=== PATIENT | female | born 1990 | race Caucasian/White ===

== ENCOUNTER 2018-09-27 16:30 | Inpatient (IN) | payer BC, SELFPAY ==
[2018-09-27 16:11] VITALS: BMI 53.4
[2018-09-27 17:14] LABS: Absolute Lymphocyte Count 2.35 X10^3/ul (0.83-4.51); Absolute Neutrophil Count 9.1 X10^3/uL (2.0-7.7); Basophil# 0.01 X10^3/uL; Basophil% 0.1 % (0-1); Eosinophil# 0.09 X10^3/uL; Eosinophils% 0.7 % (0-5); Hemoglobin 12.1 g/dl (12.0-15.0); Lymphocyte # 2.35 X10^3/ul (4.0); Lymphocyte % 18.4 % (19-41); Mean Corp Hgb Conc 33.6 g/gl (32-36); Mean Corpuscular Hgb 30.2 pg (27.0-32.0); Mean Corpuscular Volume 89.8 fL (81-99); Mean Platelet Vol. 11.1 fl (6.2-12.0); Monocyte# 1.15 X10^3/uL; Neutrophil # 9.11 X10^3/uL (2.7-7.7); Neutrophil % 71.6 % (47-70); Partial Thromboplast Time 29.6 Seconds (24.1-36.2); Platelet Count 215 K/mm3 (150-450); RBC Distribution Width SD 42.1 fl (35.1-43.9); Red Blood Count 4.01 M/mm3 (4.2-5.4); White Blood Count 12.7 K/mm3 (4.4-11.0)
[2018-09-27 17:15] LABS: POSITIVE COUNT NO; POSITIVE DIFFERENTIAL NO; POSITIVE MORPHOLOGY NO; Scan Indicated on CBC? Y/N NO
[2018-09-27 17:19] LABS: Prothrombin Time (Protime)PT. 12.8 SECONDS (11.7-14.9)
[2018-09-27 17:27] LABS: Protein, Urine (Random) 11.2 mg/dL (<11.9); Protein:Creat Ratio 106 mg/g CRE (0-200)
--- NOTE | 2018-09-27 17:49 | PCM.HP.OB ---
History Date of Admission: 09/27/18 Final AGUSTIN: 10/09/18 Gestational age: 38 Weeks and 2 Days History of this : This is a 28 year-old, G [], P [], at 38 weeks gestational age. Surgical History: Surgical History (Last Updated 09/27/18 @ 17:50 by Jaswinder Nunez) History of oral surgery Z98.890 Allergies No Known Allergies Allergy (Verified 09/27/18 16:52) Home Medications: Home Medications Vits [Prenatabs FA] 1 tablet PO DAILY 09/27/18 Smoking Status: Former smoker Alcohol: None Heart Tracin with mod variability, accels TOCO Analysis: quiet History Past Pregnancies: Past Pregnancies Delivery Date Name GA/Weeks Outcome Route Weight Infant Gender Labor Length Anesthesia Delivery Location Provider FOB Labs: see [facility] H&P Physical Exam General: Alert, Oriented x3 Abdomen: Soft, Non Tender, Non-Distended, Gravid Extremities:: No tenderness/swelling Neurological: Cranial nerves II-XII grossly intact Cervix Dilation (cm): 1 Station: -3 Effacement (%): 50 Assessment/Plan This is a 28 year-old female at 38&2 weeks gestational age. Admit to L&D Induction of labor - start cytotec and plan for intracervical deleon placement. Severe preeclampsia - atient with likely underlying chtn. Labs pending. Starting Magnesium sulfate and s/p IV labetalol for severe range BP's. GBS positive - pcn per protocol Pain - epidural as desired. EFW - less than 4500g, patient with adequate pelvis. Polyhydramnios
[2018-09-27] MEDS: Magnesium Sulfate 4gm/100mL 4 GM/100 ML IV.SOLN. IV (17:50)
[2018-09-27] MEDS: Lactated Ringers 1,000 ML 50 ML IV (17:50)
[2018-09-27 17:56] LABS: AST(SGOT) 14 U/L (15-37); Alanine Aminotransfer ALT/SGPT 13 U/L (13-56); Creatinine, Serum 0.82 mg/dL (0.55-1.02); EST Glomerular Filtration Rate 89 mL/min (>60); Est Glom Filt Rate - Afr Amer 107 mL/min (>60); Estimated Creatinine Clearance 91.91 ml/min; Uric Acid 4.2 mg/dL (2.6-6.0)
[2018-09-27] MEDS: Magnesium Sulfate 20 GM/500 ML BAG IV (18:15)
[2018-09-27] MEDS: miSOPROStol 25 MCG TABLET VAGINAL (18:58)
[2018-09-27] MEDS: 0.9% Saline Lock 10 ML Syringe IV (22:09)
[2018-09-28] VITALS (12 sets, daily range): BP systolic 126–140; BP diastolic 7–79; PULSE 73–90; RESP 18–20; TEMP 35.2–36.3; O2SAT 94–97
[2018-09-28] MEDS: Oxytocin 30 units/NS 500 ml 30 UNITS/500 ML IV.SOLN IV (00:09)
[2018-09-28] MEDS: Ondansetron 4 MG/2 ML Vial IV ×2 (01:00→11:50)
--- NOTE | 2018-09-28 01:31 | PCM.PN.BLA ---
Progress Note S: Denies complaints O: cvx - 3/60/-3 fhts 125 with mod variability, accels tocos Q2-4 min AROM clear amniotic fluid A&P: continue pitocin induction GBS positive - on pcn Severe preE - Continue Magnesium. S/p IV labetalol. Start PO labetalol 200mg bid.
[2018-09-28] MEDS: Labetalol 200 MG Tablet PO ×2 (01:56→10:08)
[2018-09-28] MEDS: Magnesium Sulfate 20 GM/500 ML BAG IV ×2 (05:05→15:08)
[2018-09-28] MEDS: Acetaminophen 325 MG Tablet PO ×2 (08:33→15:52)
--- NOTE | 2018-09-28 08:37 | PCM.PN.BLA ---
Progress Note At bedside to check on pt. She is doing well. BP's currently mild range. Cont mag gtt. Cvx 4 cm on last check. Continue to titrate pitocin. Category 1 tracing.
[2018-09-28] MEDS: 0.9% Saline Lock 10 ML Syringe IV (11:50)
--- NOTE | 2018-09-28 12:57 | PCM.PN.BLA ---
Progress Note At bedside to check on pt. Cvx /-2. Pit at 18 mu/min. Pt only slightly uncomfortable with ctx's. Mag gtt, mild range BP's. Has mild sinus RODRIGUEZ, otherwise no pre-e symptoms. Pt placed in hands and knees. Will try pit break, and then restart at 1/2.
--- NOTE | 2018-09-28 15:51 | PCM.PN.BLA ---
Progress Note At bedside to check on pt. Pit at 15 mu/min. Cvx unchanged, IUPC replaced after being flushed as it was not reading well. Contraction pattern still not adequate after pit break. Pit break was initiated because pt was having an irregular ctx pattern. Pt still relatively comfortable without medication/epidural at this point. Discussed possible section for FTP.
[2018-09-28] MEDS: Nalbuphine 10 MG/ML Ampul IV (16:13)
[2018-09-28] MEDS: Loratadine 10 MG Tablet 5 MG PO (16:16)
--- NOTE | 2018-09-28 18:24 | PCM.PN.BLA ---
Progress Note At bedside to check on pt. Cvx remains unchanged. Pit at 22 mu/min and pt more uncomfortable, but contraction pattern still irregular and not adequate. Category 1 tracing. Discussed risks and benefits of a primary section. Pt agreeable to for FTP given that she has been 4 cm dilated for 12 hours at this point.
[2018-09-28] MEDS: Sodium Citrate/Citric Acid 30 ML UDC PO (19:29)
[2018-09-28] MEDS: Oxytocin 30 units/NS 500 ml 30 UNITS/500 ML IV.SOLN 167 UNITS IV (20:25)
[2018-09-28] MEDS: miSOPROStol 200 MCG Tablet 800 MCG RECTAL (21:17)
--- NOTE | 2018-09-28 22:07 | PCM.OPRPT ---
Problem List (1) Failure to progress in labor Status: Acute (2) Polyhydramnios affecting Status: Acute (3) Chronic hypertension affecting Status: Chronic (4) Pre-eclampsia Status: Acute Report of Operation Date of Procedure: 09/28/18 Pre-Operative Diagnosis: 38 wk gestation, cHTN with super imposed pre-eclampsia with severe features, polyhydramnios, failure to progress in labor Post-Operative Diagnosis: As above Surgery/Procedure Performed:: PLTCS via pfannenstiel incision Description of Surgical Findings:: Normal appearing uterus and bilateral tubes and ovaries. Infant in vertex position. Clear fluid. Intact and normal appearing placenta Type of Anesthesia:: Spinal Drains: Castillo Estimated Blood Loss (mL): 700 Fluids Replaced: 1200 Description of Procedure: Patient was prepped abdominally and vaginally, and draped in usual sterile fashion in dorsal lithotomy position. Spinal anesthesia was noted to be adequate. A Pfannenstiel skin incision was made with the scalpel. The Bovie cautery was then used the carry down the incision to the fascial layer. The fascia was then incised with the scalpel. The fascia was extended laterally with naik scissors. Rachel clamps were then used to elevate the top layer of the fascia, and the rectus muscles were dissected off of the fascia. The same was performed inferiorly. The rectus muscles were in the midline. The peritoneum was entered sharply and extended superior and inferior with good visualization of the bladder. A bladder flap was created. A low transverse incision was made on the uterus with a scalpel and extended. The was vertex and elevated out of the pelvis to the incision. VMI was delivered without force or delay. Cord was clamped and cut immediately and handed off to nursery staff. Cord blood was obtained for cord blood banking. The placenta was removed and noted to be normal in appearance. Uterus was cleared of all clot and debris. Uterus was exteriorized. The uterine incision was closed in a running locked fashion. The uterus was then placed back into the abdomen. Several additional running and [id number]-de-[id number] sutures were placed along the uterine incision to achieve hemostasis. Arrista was placed over the uterine incision. The peritoneum was closed in a running fashion. The fascia was then closed in a running fashion with 0-looped PDS. The subcutaneous layer was irrigated and closed with vicryl. The skin was closed in a subcuticular fashion with monocryl. A silver dressing was applied over the incision. The fundus was firm at the end of the case, but vaginal bleeding was noted and therefore Cytotec 800 mcg was placed rectally. Patient was taken to the recovery room in stable condition with the baby. - Complications None - Admit VTE Documentation VTE Present on Admission: No VTE Mechan Device Prophylaxis: SCD's VTE Pharm Prophylaxis ordered?: Yes Delivery Classification: LILIAN Indications for : Failure to Progress - After induction of labor, patient remained 4 cm dilated for 12 hours. Amniotic Membrane Rupture Type: Artificial Amniotic Fluid Description: Clear Cord Entanglement: Around neck x 1, loose Cord Vessel Description: 3 Vessels Esitmated Blood Loss (ml): 700 Infant Gender: Male Delayed cord clamping: No Complications: None - Admit VTE Documentation VTE Present on Admission: No VTE Mechan Device Prophylaxis: SCD's VTE Pharm Prophylaxis ordered?: Yes
--- NOTE | 2018-09-28 22:17 | OP.PCM_ITS ---
Problem List (1) Failure to progress in labor Status: Acute (2) Polyhydramnios affecting Status: Acute (3) Chronic hypertension affecting Status: Chronic (4) Pre-eclampsia Status: Acute Report of Operation Date of Procedure: 09/28/18 Pre-Operative Diagnosis: 38 wk gestation, cHTN with super imposed pre-eclampsia with severe features, polyhydramnios, failure to progress in labor Post-Operative Diagnosis: As above Surgery/Procedure Performed:: PLTCS via pfannenstiel incision Description of Surgical Findings:: Normal appearing uterus and bilateral tubes and ovaries. Infant in vertex position. Clear fluid. Intact and normal appearing placenta Type of Anesthesia:: Spinal Drains: Castillo Estimated Blood Loss (mL): 700 Fluids Replaced: 1200 Description of Procedure: Patient was prepped abdominally and vaginally, and draped in usual sterile fashion in dorsal lithotomy position. Spinal anesthesia was noted to be a dequate. A Pfannenstiel skin incision was made with the scalpel. The Bovie cautery was then used the carry down the incision to the fascial layer. The fascia was then incised with the scalpel. The fascia was extended laterally with naik scissors. Rachel clamps were then used to elevate the top layer of the fascia, and the rectus muscles were dissected off of the fascia. The same was performed inferiorly. The rectus muscles were in the midline. The peritoneum was entered sharply and extended superior and inferior with good visualization of the bladder. A bladder flap was created. A low transverse incision was made on the uterus with a scalpel and extended. The infant was vertex and elevated out of the pelvis to the incision. VMI was delivered without force or delay. Cord was clamped and cut immediately and infant handed off to nursery staff. Cord blood was obtained for cord blood banking. The placenta was removed and noted to be normal in appearance. Uterus was cleared of all clot and debris. Uterus was exteriorized. The uterine incision was closed in a running locked fashion. The uterus was then placed back into the abdomen. Several additional running and [id number] sutures were placed along the uterine incision to achieve hemostasis. Arrista was placed over the uterine incision. The peritoneum was closed in a running fashion. The fascia was then closed in a running fashion with 0-looped PDS. The subcutaneous layer was irrigated and closed with vicryl. The skin was closed in a subcuticular fashion with monocryl. A silver dressing was applied over the incision. The fundus was firm at the end of the case, but vaginal bleeding was noted and therefore Cytotec 800 mcg was placed rectally. Patient was taken to the recovery room in stable condition with the baby. - Complications None - Admit VTE Documentation VTE Present on Admission: No VTE Mechan Device Prophylaxis: SCD's VTE Pharm Prophylaxis ordered?: Yes Delivery Classification: LILIAN Indications for : Failure to Progress - After induction of labor, patient remained 4 cm dilated for 12 hours. Amniotic Membrane Rupture Type: Artificial Amniotic Fluid Description: Clear Cord Entanglement: Around neck x 1, loose Cord Vessel Description: 3 Vessels Esitmated Blood Loss (ml): 700 Infant Gender: Male Delayed cord clamping: No Complications: None - Admit VTE Documentation VTE Present on Admission: No VTE Mechan Device Prophylaxis: SCD's VTE Pharm Prophylaxis ordered?: Yes
[2018-09-29] VITALS (18 sets, daily range): BP systolic 114–134; BP diastolic 61–84; PULSE 75–90; RESP 14–20; TEMP 35.2–36.4; O2SAT 94–99
[2018-09-29] MEDS: Lactated Ringers 1,000 ML 100 ML IV ×3 (02:03→10:43)
[2018-09-29] MEDS: Ondansetron 4 MG/2 ML Vial IV (02:04)
[2018-09-29] MEDS: Lactated Ringers 1,000 ML 999 ML IV ×2 (02:33→10:00)
[2018-09-29] MEDS: Magnesium Sulfate 20 GM/500 ML BAG IV (05:01)
[2018-09-29] MEDS: Ketorolac 30 MG/ML Syringe IV ×3 (06:12→18:08)
[2018-09-29 06:37] LABS: ALB/GLOB Ratio 0.7 RATIO (0.9-2.4); AST(SGOT) 13 U/L (15-37); Alanine Aminotransfer ALT/SGPT 10 U/L (13-56); Albumin, Serum 2.3 g/dL (3.2-5.0); Alkaline Phosphatase 80 U/L (45-117); Anion Gap 8 (5-15); BUN 11 mg/dL (7-18); Calcium,Total 7.2 mg/dL (8.5-10.1); Chloride 103 mmol/L (98-107); Creatinine, Serum 0.73 mg/dL (0.55-1.02); EST Glomerular Filtration Rate 100 mL/min (>60); Est Glom Filt Rate - Afr Amer 121 mL/min (>60); Estimated Creatinine Clearance 103.24 ml/min; Globulin 3.4 g/dL (2.2-4.2); Glucose 123 mg/dL (74-106); Potassium 4.4 mmol/L (3.5-5.1); Protein, Total 5.7 g/dL (6.4-8.2); Sodium Level 135 mmol/L (136-145)
[2018-09-29 06:39] LABS: Hematocrit 30.3 % (37-47); Hemoglobin 10.1 g/dl (12.0-15.0); Mean Corp Hgb Conc 33.3 g/gl (32-36); Mean Corpuscular Hgb 30.1 pg (27.0-32.0); Mean Corpuscular Volume 90.2 fL (81-99); Mean Platelet Vol. 11.1 fl (6.2-12.0); Platelet Count 194 K/mm3 (150-450); RBC Distribution Width CV 13.3 % (11.6-14.6); RBC Distribution Width SD 42.7 fl (35.1-43.9); Red Blood Count 3.36 M/mm3 (4.2-5.4); White Blood Count 16.7 K/mm3 (4.4-11.0)
[2018-09-29 06:50] LABS: Scan Indicated on CBC? Y/N NO
--- NOTE | 2018-09-29 07:27 | NURSING ---
1932-stopped mag per dr alvarado to be started back up after delivery.
[2018-09-29] MEDS: Enoxaparin 40 MG/0.4 ML Syringe SC (09:40)
[2018-09-29] MEDS: Labetalol 200 MG Tablet PO ×2 (09:40→22:38)
--- NOTE | 2018-09-29 09:52 | PCM.PN.OB ---
Patient Problems: Active and Suspected Problems (Last Updated 09/27/18 @ 17:50 by Jaswinder Nunez) Failure to progress in labor (Acute) Polyhydramnios affecting (Acute) Pre-eclampsia (Acute) Subjective: Patient doing well this morning. Having occasional nausea and vomiting since being on the mag gtt. Not yet ambulating. Deleon in place. Denies lightheadedness, dizziness, CP, SOB, leg pain, uncontrolled pain. . Denies RODRIGUEZ, vision changes, upper abd pain. She has no complaints - Physical Exam General: Alert, No apparent distress HEENT: Atraumatic Lungs: - - No increased resp effort Abdomen: Soft, Non Tender, - - Dressing clean and intact Extremities: No Calf Tenderness Skin: No rashes Neurological: Neuro grossly intact Psych/Mental Status: Normal Affect, Appropriate Vital Signs Temp Pulse Resp BP Pulse Ox 97.1 F L 85 18 131/61 H 97 09/29/18 09:00 09/29/18 09:00 09/29/18 09:00 09/29/18 09:00 09/29/18 09:00 Oxygen Delivery Method Room Air Weight: 321 lb Body Mass Index (BMI) 53.4 Intake and Output for Last 24 Hours 09/27/18 09/28/18 09/29/18 23:59 23:59 23:59 Intake Total 100 / 100 1678 / 1678 3855 / 3855 Output Total 100 / 100 315 / 315 603 / 603 Balance 0 / 0 1363 / 1363 3252 / 3252 Laboratory Tests Past 24 Hrs 09/29/18 09/29/18 05:55 05:55 WBC 16.7 H RBC 3.36 L Hgb 10.1 L Hct 30.3 L MCV 90.2 MCH 30.1 MCHC 33.3 RDW 13.3 RDW Differential 42.7 Plt Count 194 MPV 11.1 Sodium 135 L Potassium 4.4 Chloride 103 Carbon Dioxide 24.0 Anion Gap 8 BUN 11 Creatinine 0.73 Estim Creat Clear Calc 103.24 Est GFR (MDRD) Af Amer 121 Est GFR (MDRD) Non-Af 100 BUN/Creatinine Ratio 15.0 Glucose 123 H Calcium 7.2 L Total Bilirubin 0.30 AST 13 L ALT 10 L Alkaline Phosphatase 80 Total Protein 5.7 L Albumin 2.3 L Globulin 3.4 Albumin/Globulin Ratio 0.7 L Medical Necessity - Tobacco Use Smoking Status: Former smoker Assessment/Plan All Active Problems (Last Updated 09/27/18 @ 17:50 by Jaswinder Nunez) Failure to progress in labor (Acute) Polyhydramnios affecting (Acute) Pre-eclampsia (Acute) POD#1 s/p PLTCS. cHTN with superimposed pre-eclampsia with severe features. FTP in labor - AF VSS, BP's normal to mild. Will continue Labetalol 200mg BID - No pre-e symptoms this morning - Pre-e labs WNL this morning - D/c mag gtt after 12 hrs - D/c deleon today and encourage ambulation - DVT proph: SCD's and Lovenox - Dispo: Routine post-op care
[2018-09-30] MEDS: Ketorolac 30 MG/ML Syringe IV ×3 (00:11→12:48)
[2018-09-30] MEDS: 0.9% Saline Lock 10 ML Syringe IV ×3 (00:11→12:48)
[2018-09-30 01:45] VITALS: BP 128/64; PULSE 80; RESP 18; TEMP 36.8
[2018-09-30 08:11] VITALS: BP 137/64; PULSE 86; RESP 16; TEMP 36.9; O2SAT 99
--- NOTE | 2018-09-30 09:02 | PCM.PN.OB ---
Patient Problems: Active and Suspected Problems (Last Updated 09/27/18 @ 17:50 by Jaswinder Nunez) Failure to progress in labor (Acute) Polyhydramnios affecting (Acute) Pre-eclampsia (Acute) Subjective: Pt doing well. Ambulating and voiding without difficulty. Tolerating reg diet without N/V. Denies lightheadedness, dizziness, CP, SOB, leg pain. . Lochia normal. No RODRIGUEZ or vision changes. She feels ready to go home. - Physical Exam General: Alert, No apparent distress HEENT: Atraumatic Lungs: - - No increased resp effort Abdomen: Soft, Non Tender, - - fundus difficult to palpated given body habitus, dressing c/d/i Extremities: No Calf Tenderness Skin: No rashes Neurological: Neuro grossly intact Psych/Mental Status: Normal Affect, Appropriate Vital Signs Temp Pulse Resp BP Pulse Ox 98.5 F 86 16 137/64 H 99 09/30/18 08:11 09/30/18 08:11 09/30/18 08:11 09/30/18 08:11 09/30/18 08:11 Oxygen Delivery Method Room Air Weight: 321 lb Body Mass Index (BMI) 53.4 Intake and Output for Last 24 Hours 09/28/18 09/29/18 09/30/18 23:59 23:59 23:59 Intake Total 1678 / 1678 3855 / 3855 Output Total 315 / 315 1553 / 1553 Balance 1363 / 1363 2302 / 2302 Medical Necessity - Tobacco Use Smoking Status: Former smoker Assessment/Plan All Active Problems (Last Updated 09/27/18 @ 17:50 by Jaswinder Nunez) Failure to progress in labor (Acute) Polyhydramnios affecting (Acute) Pre-eclampsia (Acute) POD#2 s/p PLTCS for FTP after IOL for cHTN with super imposed pre-eclampsia with severe features - Doing well - No pre-e symptoms. BP's wnl on Labetalol. S/p mag. Will continue Labetalol at home, rx given - Meeting all post-op milestones - Dispo: D/c home today per pt request with follow up this week for BP check and incision check. Percocet and Iron rx's given
--- NOTE | 2018-09-30 09:14 | PCM.DCCSEC ---
Discharge Diet: No Restrictions Discharge Activity: May not drive while taking narcotic pain medications., May Shower May shower in (days): 0 May resume sexual activity in: 4-6 weeks Weight Bearing Status: Weight bearing as tolerated Lifting Restrictions: No lifting greater than 20 pounds Call your doctor if your incision/area has: Sudden Increased Bleeding, Increased Pain/ Swelling, Increased Redness, Foul Smelling Discharge, Swelling at the incision site Call your doctor if you observe: Fever of 101 or Higher, Inability to urinate, Inability to have a bowel movement, Using more than one pad per hour, Shortness of breath, Dizziness, Chest pain, Increased palpitations (irregular heartbeat), Calf discomfort, Uncontrolled pain Suture Line Care: Avoid Pulling/Pushing, Avoid Pinching/Bending Remove Dressing in (days):: 7 Instructions: Discharge Instructions for Section () Additional Instructions: Please call if you have a headache that is not resolved with Tylenol, vision changes, upper abdominal pain, nausea, vomiting. If you experience any of the following, contact your healthcare provider. Bleeding that soaks a pad every hour for 2 hours Fever 100.4 or higher Unrelieved incision or abdominal pain Swelling, redness, discharge or bleeding from your incision or episiotomy site Your incision begins to separate Problems urinating (including inability to urinate or burning while urinating). Visual changes Severe headache Flu-like symptoms Pain or redness in one of both of your breasts Pain, warmth, tenderness or swelling in your legs, especially the calf area Frequent nausea and vomiting Symptoms of depression or anxiety If you experience any of the following, call 911 or go to the nearest Emergency Room. Chest pain Problems breathing Seizure activity Partial or complete paralysis of a body part, slurred speech, weakness or drooping of the face, or a sudden inability to walk or hold your balance Allergies/Adverse Reactions: Allergies No Known Allergies Allergy (Verified 09/27/18 16:52) Medications to take at Discharge Vits [Prenatabs FA] 1 tablet PO DAILY 09/27/18 Ferrous Sulfate 325 mg PO DAILY #30 tab 09/30/18 Labetalol [Trandate (Beta Mirna)] 200 mg PO BID #30 tab 09/30/18 Oxycodone HCl/Acetaminophen [Percocet 5-325 mg Tablet] 1 ea PO Q8H PRN PRN 7 Days #28 tab 09/30/18 The following prescriptions were given: Oxycodone HCl/Acetaminophen [Percocet 5-325 mg Tablet] 1 ea PO Q8H PRN PRN 7 Days #28 tab PRN Reason: Pain Ferrous Sulfate 325 mg PO DAILY #30 tab Labetalol [Trandate (Beta Mirna)] 200 mg PO BID #30 tab Follow-Up: Call to make an appointment with your doctor for an incision check in 1-2 weeks. You will also need a 6 week post- follow up appointment. Test results from this visit will be discussed in further detail at your follow-up appointment, if applicable. Please Follow Up With: Yumiko Cancino DO When: 1 week for incision check and blood pressure check. 6 weeks for Primary Care Physician: Sury Husain [Primary Care Provider] - Proposed Discharge Date: 09/30/18
--- NOTE | 2018-09-30 09:18 | DCINST_ITS ---
Discharge Diet: No Restrictions Discharge Activity: May not drive while taking narcotic pain medications., May Shower May shower in (days): 0 May resume sexual activity in: 4-6 weeks Weight Bearing Status: Weight bearing as tolerated Lifting Restrictions: No lifting greater than 20 pounds Call your doctor if your incision/area has: Sudden Increased Bleeding, Increased Pain/ Swelling, Increased Redness, Foul Smelling Discharge, Swelling at the incision site Call your doctor if you observe: Fever of 101 or Higher, Inability to urinate, Inability to have a bowel movement, Using more than one pad per hour, Shortness of breath, Dizziness, Chest pain, Increased palpitations (irregular heartbeat), Calf discomfort, Uncontrolled pain Suture Line Care: Avoid Pulling/Pushing, Avoid Pinching/Bending Remove Dressing in (days):: 7 Instructions: Discharge Instructions for Section () Additional Instructions: Please call if you have a headache that is not resolved with Tylenol, vision changes, upper abdominal pain, nausea, vomiting. If you experience any of the following, contact your healthcare provider. * Bleeding that soaks a pad every hour for 2 hours * Fever 100.4 or higher * Unrelieved incision or abdominal pain * Swelling, redness, discharge or bleeding from your incision or episiotomy site * Your incision begins to separate * Problems urinating (including inability to urinate or burning while urinating). * Visual changes * Severe headache * Flu-like symptoms * Pain or redness in one of both of your breasts * Pain, warmth, tenderness or swelling in your legs, especially the calf area * Frequent nausea and vomiting * Symptoms of depression or anxiety If you experience any of the following, call 911 or go to the nearest Emergency Room. * Chest pain * Problems breathing * Seizure activity * Partial or complete paralysis of a body part, slurred speech, weakness or drooping of the face, or a sudden inability to walk or hold your balance Allergies/Adverse Reactions: Allergies No Known Allergies Allergy (Verified 09/27/18 16:52) Medications to take at Discharge Vits [Prenatabs FA] 1 tablet PO DAILY 09/27/18 Ferrous Sulfate 325 mg PO DAILY #30 tab 09/30/18 Labetalol [Trandate (Beta Mirna)] 200 mg PO BID #30 tab 09/30/18 Oxycodone HCl/Acetaminophen [Percocet 5-325 mg Tablet] 1 ea PO Q8H PRN PRN 7 Da ys #28 tab 09/30/18 The following prescriptions were given: Oxycodone HCl/Acetaminophen [Percocet 5-325 mg Tablet] 1 ea PO Q8H PRN PRN 7 Days #28 tab PRN Reason: Pain Ferrous Sulfate 325 mg PO DAILY #30 tab Labetalol [Trandate (Beta Mirna)] 200 mg PO BID #30 tab Follow-Up: Call to make an appointment with your doctor for an incision check in 1-2 weeks. You will also need a 6 week post- follow up appointment. Test results from this visit will be discussed in further detail at your follow- up appointment, if applicable. Please Follow Up With: Yumiko Cancino DO When: 1 week for incision check and blood pressure check. 6 weeks for Primary Care Physician: Sury Husain [Primary Care Provider] - Proposed Discharge Date: 09/30/18
[2018-09-30] MEDS: Labetalol 200 MG Tablet PO (09:41)
[2018-09-30] MEDS: Enoxaparin 40 MG/0.4 ML Syringe SC (09:41)
[2018-09-30] MEDS: oxyCODONE 5 MG Tablet PO (12:53)
[2018-09-30] MEDS: Senna/Docusate Sodium 1 Tablet PO (12:54)
[2018-09-30 13:22] VITALS: BP 134/64; PULSE 87; RESP 16; TEMP 36.6; O2SAT 98
--- NOTE | 2018-10-05 07:28 | PCM.DC.SUM ---
Discharge Date and Diagnosis Date of Admission: 09/27/18 Date of Discharge: 09/30/18 - Primary Discharge Diagnosis 38 week gestation, pre-eclampsia with severe features - Secondary Discharge Diagnosis Chronic Problems (Last Updated 09/27/18 @ 17:50 by Jaswinder Nunez) Chronic hypertension affecting (Chronic) Hospital Course and Treatment Operations: - - PLTCS Summary of Care Provided: The patient is a 28 year old F who presented at 38w2d with a RODRIGUEZ and severe range blood pressures. She likely has underlying chronic HTN. An IOL was started for pre-eclampsia with severe features. Her pre-eclampsia labs were within normal limits. She was started on magnesium for seizure prophylaxis. She progressed to 4 cm dilated. She had a primary low transverse section for failure to progress in labor. She was continued on magnesium . She was on Labetalol 200mg BID , and her blood pressures were well controlled. Her course was uncomplicated. She was ambulating, voiding, tolerating a diet, and pain was controlled on day of discharge. - Physical Exam Vital Signs Temp Pulse Resp BP Pulse Ox 97.8 F 87 16 134/64 H 98 09/30/18 13:22 09/30/18 13:22 09/30/18 13:22 09/30/18 13:22 09/30/18 13:22 Oxygen Delivery Method Room Air Weight: 321 lb Body Mass Index (BMI) 53.4 Discharge Diet: No Restrictions Discharge Activity: May not drive while taking narcotic pain medications., May Shower May shower in (days): 0 May resume sexual activity in: 4-6 weeks Weight Bearing Status: Weight bearing as tolerated Call your doctor if your incision/area has: Sudden Increased Bleeding, Increased Pain/ Swelling, Increased Redness, Foul Smelling Discharge, Swelling at the incision site Call your doctor if you observe: Fever of 101 or Higher, Inability to urinate, Inability to have a bowel movement, Using more than one pad per hour, Shortness of breath, Dizziness, Chest pain, Increased palpitations (irregular heartbeat), Calf discomfort, Uncontrolled pain Suture Line Care: Avoid Pulling/Pushing, Avoid Pinching/Bending Remove Dressing in (days):: 7 Home Medications: Medications to take at Discharge Vits [Prenatabs FA] 1 tablet PO DAILY 09/27/18 Ferrous Sulfate 325 mg PO DAILY #30 tab 09/30/18 Ferrous Sulfate 325 mg PO DAILY #30 tab 09/30/18 Labetalol [Trandate (Beta Mirna)] 200 mg PO BID #30 tab 09/30/18 Labetalol [Trandate (Beta Mirna)] 200 mg PO BID #30 tab 09/30/18 Oxycodone HCl/Acetaminophen [Percocet 5-325 mg Tablet] 1 ea PO Q8H PRN PRN 7 Days #28 tab 09/30/18 Oxycodone HCl/Acetaminophen [Percocet 5/325] 1 tab PO Q6H PRN PRN 7 Days #29 tab 09/30/18 Following Prescrptions Were Given to Patient: Oxycodone HCl/Acetaminophen [Percocet 5/325] 1 tab PO Q6H PRN PRN 7 Days #29 tab PRN Reason: Pain Oxycodone HCl/Acetaminophen [Percocet 5-325 mg Tablet] 1 ea PO Q8H PRN PRN 7 Days #28 tab PRN Reason: Pain Ferrous Sulfate 325 mg PO DAILY #30 tab Ferrous Sulfate 325 mg PO DAILY #30 tab Labetalol [Trandate (Beta Mirna)] 200 mg PO BID #30 tab Labetalol [Trandate (Beta Mirna)] 200 mg PO BID #30 tab Primary Care Physician: Sury Husain [Primary Care Provider] - Please Follow Up With: Yumiko Cancino DO When: 1 week for incision check and blood pressure check. 6 weeks for Patient Instructions: Discharge Instructions for Section () Medical Necessity - Tobacco Use Smoking Status: Former smoker Meaningful Use Info Meaningful Use Diagnoses (Choose all that apply): None applicable
== END 2018-09-30 14:10 | disposition home or self-care (01) | DRG 787 ==
LOC: WPOUT 16:34
PROVIDERS: Obstetrics & Gynecology; Admitting Provider Obstetrics & Gynecology; Family Provider Family Medicine; PCP Family Medicine; Referring Provider Obstetrics & Gynecology; Visit Provider Obstetrics & Gynecology
DX: O62.0 Primary inadequate contractions (principal); O98.82 Other maternal infectious and parasitic diseases complicating childbirth; O10.92 Unspecified pre-existing hypertension complicating childbirth; O61.0 Failed medical induction of labor; O14.14 Severe pre-eclampsia complicating childbirth; B95.1 Streptococcus, group B, as the cause of diseases classified elsewhere; O40.3XX0 Polyhydramnios, third trimester, not applicable or unspecified; Z3A.38 38 weeks gestation of pregnancy; Z37.0 Single live birth; Z22.330 Carrier of Group B streptococcus; Z87.891 Personal history of nicotine dependence
CPT/HCPCS: 59025; 59050; 80053; 82565; 82570; 84156; 84450; 84460; 84550; 85025; 85027; 85610; 85730; 86850; 86900; 99218; J7120; A4216; G0378; J2405

== ENCOUNTER 2018-10-10 17:59 | Observation (INO) | payer BC, SELFPAY ==
[2018-10-10] VITALS (10 sets, daily range): BP systolic 98–167; BP diastolic 51–93; PULSE 64–87; RESP 16–18; TEMP 36.3–37.2; O2SAT 96–100; BMI 49.3
--- NOTE | 2018-10-10 17:10 | EMB_PTH ---
PATIENT: YUMIKO WILKINS LOC: [facility]3 U#:[id number] AGE/SX: 28/F ROOM: [facility]313 RE10/10/[address]: Dr. Yumiko Cancino DO : 1990 BED: 1 DIS: 10/11/2018 SPEC #: [id number] RECD: 10/11/18 07:07 STATUS: MARQUES REJulissa #: [id number] BARRON: 10/10/18 17:[address]: Yumiko Cancino DEPT: SURGICAL PATHOLOGY RECD BY: Ramón Dunaway ENTERED: 10/11/18 11:19 SP TYPE: ENDOM BX/C SERENA DR: Dr. Sury Husain MD Tissues: Endometrium, NOS Procedures: Surgery Specimen Level IV HEADER OPERATION: Dilation and curettage, suction PRE-OP DIAGNOSIS: Delayed hemorrhage TISSUE SUBMITTED: Endometrial curettings MICROSCOPIC DIAGNOSIS Endometrial curettings: Blood clots and scant fragments of inflamed benign endometrial tissue. See comment. SJ:gisela 10/12/18 COMMENT Placental tissue is not identified grossly or in the sections examined. MICROSCOPIC DESCRIPTION Slides are reviewed. GROSS DESCRIPTION Received in fixative is one container labeled with the patient's name and designated endometrial curettings. The specimen consists of multiple fragments of blood clots that in aggregate measure 12 x 11 x 4 cm. No placental tissue is identified. The specimen is totally submitted in one cassette. / SJ:gisela 10/11/18 TC:5 CPT: 80040
--- NOTE | 2018-10-10 17:51 | PCM.HP.OB ---
- Problem List (1) Delayed hemorrhage Status: Acute History Date of Admission: 09/27/18 History of this : This is a 28 year-old who is 1.5 weeks post-op from a PLTCS for FTP in labor after induction for cHTN with pre-eclampsia with severe features. ABout 1 hour ago she passed a golf ball sized blood clot, and then started to have constant and heavy VB. No symptoms of anemia. She describes the bleeding as like a faucet. She was evaluated in the office and found to have significant bleeding on exam. Unable to assess fundus of uterus given body habitus. No fevers, chills, abd pain. Hgb yesterday was 10.2 and WBC was normal. Medical History: Medical History (Last Updated 09/27/18 @ 17:50 by Jaswinder Nunez) Infertility Tachycardia R00.0 Surgical History: Surgical History (Last Updated 09/27/18 @ 17:50 by Jaswinder Nunez) History of oral surgery Z98.890 Allergies No Known Allergies Allergy (Verified 09/27/18 16:52) Home Medications: Home Medications Vits [Prenatabs FA] 1 tablet PO DAILY 09/27/18 Ferrous Sulfate 325 mg PO DAILY 10/10/18 Labetalol [Trandate (Beta Mirna)] 200 mg PO BID 10/10/18 Smoking Status: Former smoker History Past Pregnancies: Past Pregnancies Delivery Date Name GA/Weeks Outcome Route Weight Infant Gender Labor Length Anesthesia Delivery Location Provider FOB Review of Systems Constitutional: Denies: Chills, Fever, Weakness Eyes: Denies: Blurred vision, Vision Change HEENT: Denies: Head Aches Cardiovascular: Denies: Chest Pain Respiratory: Denies: Shortness of Breath Gastrointestinal: Reports: Nausea. Denies: Abdominal Pain, Vomiting Neurological: Denies: Blurred vision, Double vision, Headaches Physical Exam Vitals: Vital Signs Temp Pulse Resp BP Pulse Ox 98.9 F 87 18 167/90 H 98 10/10/18 17:20 10/10/18 17:20 10/10/18 17:20 10/10/18 17:20 10/10/18 17:20 General: Alert, No apparent distress HEENT: Atraumatic Lungs: - - No increased resp effort Abdomen: Soft, - - Obese, +minimal tenderness in lower central abdomen Extremities:: No edema Neurological: Neuro grossly intact CERTIFIED ALCOHOL AND DRUG COUNSELOR: Normal external genitalia Assessment/Plan All Active Problems (Last Updated 09/27/18 @ 17:50 by Jaswinder Nunez) Failure to progress in labor (Acute) Polyhydramnios affecting (Acute) Pre-eclampsia (Acute) Delayed hemorrhage (Acute) This is a 28 year-old who is 1.5 weeks post-op from PLTCS for FTP in labor. Was induced for cHTN with s/i pre-e. - Presented today with delayed PPH - Reviewed r/b/a of D&C and consent obtained - No signs of infection - To proceed with D&C and then admit patient overnight to monitor bleeding - CBC, T&S, coags - Ancef pre-op - Pt okay with blood transfusion if needed
[2018-10-10] MEDS: Cefazolin 2 GM in 0.9% Normal Saline 100 ML IV (18:07)
[2018-10-10 18:12] LABS: Hematocrit 28.3 % (37-47); Hemoglobin 9.3 g/dl (12.0-15.0); Mean Corp Hgb Conc 32.9 g/gl (32-36); Mean Corpuscular Hgb 29.8 pg (27.0-32.0); Mean Corpuscular Volume 90.7 fL (81-99); Mean Platelet Vol. 9.6 fl (6.2-12.0); Platelet Count 319 K/mm3 (150-450); RBC Distribution Width CV 12.9 % (11.6-14.6); RBC Distribution Width SD 41.9 fl (35.1-43.9); Red Blood Count 3.12 M/mm3 (4.2-5.4); White Blood Count 8.9 K/mm3 (4.4-11.0)
[2018-10-10 18:20] LABS: Scan Indicated on CBC? Y/N NO
[2018-10-10] MEDS: miSOPROStol 200 MCG Tablet (18:39)
[2018-10-10] MEDS: Lactated Ringers 1,000 ML 125 ML IV (19:22)
--- NOTE | 2018-10-10 19:33 | OP.PCM_ITS ---
Problem List (1) Delayed hemorrhage Status: Acute Report of Operation Date of Procedure: 10/10/18 Pre-Operative Diagnosis: Delayed hemorrhage Post-Operative Diagnosis: As above Surgery/Procedure Performed:: Suction D&C under ultrasound guidance Description of Surgical Findings:: Uterus enlarged on ultrasound. Large amounts of organized blood clot removed with suction curettage, and small fragments of retained products of conception wood crew supervisor: Radha Flannery Type of Anesthesia:: MAC Specimen's removed: Endometrial curettings Drains: Intrauterine balloon Estimated Blood Loss (mL): 400 Description of Procedure: Patient prepped and draped in usual sterile fashion in dorsal lithotomy position using yellow fin stirrups. Bedside US performed showing an enlarged uterus with organized blood clot present. Weighted speculum placed to expose cervix. Single tooth tenaculum placed on anterior lip of cervix. A size 12 suction catheter was used to remove large amounts of blood and blood clots with small fragments of products of conception. A gentle sharp curettage was performed twice and the anterior and posterior bruno of the uterus were noted to feel thick. On ultrasound the uterus appeared to be filling up with blood again. A few additional passes with the suction curettage were made. Ultrasound showed a thin endometrial strip. There was continued bleeding noted. Pitocin was started and 1000 mcg of Cytotec placed rectally. An intrauterine balloon was placed to tamponade the bleeding and filled with 100 cc saline. Bleeding was hemostatic at the end of the procedure. Patient was taken to the recovery room is stable condition. - Complications None - Admit VTE Documentation VTE Present on Admission: No VTE Mechan Device Prophylaxis: SCD's VTE Pharm Prophylaxis ordered?: No
[2018-10-10 21:41] LABS: Hematocrit 27.6 % (37-47); Hemoglobin 8.8 g/dl (12.0-15.0); Mean Corp Hgb Conc 31.9 g/gl (32-36); Mean Corpuscular Hgb 29.5 pg (27.0-32.0); Mean Corpuscular Volume 92.6 fL (81-99); Platelet Count 324 K/mm3 (150-450); RBC Distribution Width CV 12.5 % (11.6-14.6); RBC Distribution Width SD 40.5 fl (35.1-43.9); Red Blood Count 2.98 M/mm3 (4.2-5.4); White Blood Count 16.1 K/mm3 (4.4-11.0)
[2018-10-10 21:43] LABS: Scan Indicated on CBC? Y/N NO
[2018-10-10] MEDS: Acetaminophen 500 MG Tablet 1000 MG PO (22:51)
--- NOTE | 2018-10-10 23:26 | NURSING ---
PT HAS INTRAUTERINE CATH DRAINING SMALL AMOUNT OF RACHNA RED BLOOD.
[2018-10-11] VITALS (8 sets, daily range): BP systolic 133–150; BP diastolic 75–84; PULSE 65–79; RESP 16–18; TEMP 36.6–36.9; O2SAT 97–98
[2018-10-11] MEDS: Cefazolin 2 GM in 0.9% Normal Saline 100 ML IV ×2 (00:15→12:28)
[2018-10-11 06:10] LABS: Hemoglobin 7.7 g/dl (12.0-15.0); Mean Corp Hgb Conc 33.5 g/gl (32-36); Mean Corpuscular Hgb 30.3 pg (27.0-32.0); Mean Corpuscular Volume 90.6 fL (81-99); Mean Platelet Vol. 9.5 fl (6.2-12.0); Platelet Count 248 K/mm3 (150-450); RBC Distribution Width CV 12.7 % (11.6-14.6); RBC Distribution Width SD 41.8 fl (35.1-43.9); Red Blood Count 2.54 M/mm3 (4.2-5.4); White Blood Count 10.6 K/mm3 (4.4-11.0)
[2018-10-11 06:14] LABS: Scan Indicated on CBC? Y/N NO
--- NOTE | 2018-10-11 08:30 | NURSING ---
Dr. Flannery removed 50cc saline from uterine catheter at this time.
--- NOTE | 2018-10-11 08:33 | PN.OBGYN_ITS ---
Patient Problems: Active and Suspected Problems (Last Updated 09/27/18 @ 17:50 by Jaswinder Nunez) Delayed hemorrhage (Acute) Subjective: Patient doing well. +Lightheadedness with ambulation. Ambulating to the restroom and back. Spont voiding without difficulty. No CP, SOB, palpitations, leg pain, N/V. No pain or cramping. - Physical Exam General: Alert, No apparent distress HEENT: Atraumatic Lungs: - - No increased resp effort Abdomen: Soft, Non Tender, - - FF with intrauterine balloon in place Extremities: No Calf Tenderness Skin: No rashes Neurological: Neuro grossly intact Psych/Mental Status: Normal Affect, Appropriate Vital Signs Temp Pulse Resp BP Pulse Ox 98 F 79 18 150/75 H 97 10/11/18 04:35 10/11/18 04:35 10/11/18 04:35 10/11/18 04:35 10/11/18 07:20 Oxygen Delivery Method Room Air Weight: 296 lb 4.82 oz Body Mass Index (BMI) 49.3 Intake and Output for Last 24 Hours 10/09/18 10/10/18 10/11/18 23:59 23:59 23:59 Intake Total 1000 / 1000 2685 / 2685 Output Total 25 / 25 1475 / 1475 Balance 975 / 975 1210 / 1210 Laboratory Tests Past 24 Hrs 10/10/18 10/10/18 10/10/18 17:45 17:45 17:45 WBC 8.9 RBC 3.12 L Hgb 9.3 L Hct 28.3 L MCV 90.7 MCH 29.8 MCHC 32.9 RDW 12.9 RDW Differential 41.9 Plt Count 319 MPV 9.6 Blood Type O POSITIVE Antibody Screen NEGATIVE Crossmatch See Detail 10/10/18 10/11/18 21:20 05:12 WBC 16.1 H 10.6 RBC 2.98 L 2.54 L Hgb 8.8 L 7.7 L Hct 27.6 L 23.0 L MCV 92.6 90.6 MCH 29.5 30.3 MCHC 31.9 L 33.5 RDW 12.5 12.7 RDW Differential 40.5 41.8 Plt Count 324 248 MPV 10.0 9.5 Blood Type Antibody Screen Crossmatch Medical Necessity - Tobacco Use Smoking Status: Former smoker Tobacco Use: Cigarettes Assessment/Plan All Active Problems (Last Updated 09/27/18 @ 17:50 by Jaswinder Nunez) Failure to progress in labor (Acute) Polyhydramnios affecting (Acute) Pre-eclampsia (Acute) Delayed hemorrhage (Acute) POD#1 s/p suction D&C for delayed hemorrhage - Hgb 7.7 this AM and pt symptomatic with ambulation - Reviewed r/b of blood transfusion and pt agreeable to 1 unit PRBC's - Recheck CBC and coags at 11 am today - Intrauterine balloon with 70 cc out total. Minimal bleeding around the chris ter. Will remove intrauterine balloon this morning and continue to monitor bleeding - If bleeding stable and appropriate rise in Hgb, possible d/c home later today
--- NOTE | 2018-10-11 10:45 | NURSING ---
Intrauterine balloon removed at this time.
[2018-10-11] MEDS: Labetalol 200 MG Tablet PO (11:45)
--- NOTE | 2018-10-11 12:23 | PCM.DC.D&C ---
Discharge Diet: No Restrictions Discharge Activity: Return to Normal Activity, May not drive while taking narcotic pain medications. May resume sexual activity in: 6 weeks Weight Bearing Status: Full weight bearing Lifting Restrictions: None Call your doctor if you observe: Fever of 101 or Higher, Inability to urinate, Inability to have a bowel movement, Using more than one pad per hour, Shortness of breath, Fainting spells, Increased palpitations (irregular heartbeat), Calf discomfort, Uncontrolled pain Allergies/Adverse Reactions: Allergies No Known Allergies Allergy (Verified 09/27/18 16:52) Medications to take at Discharge Vits [Prenatabs FA] 1 tablet PO DAILY 09/27/18 Ferrous Sulfate 325 mg PO DAILY 10/10/18 Labetalol [Trandate (Beta Mirna)] 200 mg PO BID 10/10/18 Primary Care Physician: Sury Husain [Primary Care Provider] - Test Results: Test results from this visit will be discussed in further detail at your follow-up appointment, if applicable. Please Follow Up With: Yumiko Cancino DO When: on Monday
--- NOTE | 2018-10-11 12:27 | DCINST_ITS ---
Discharge Diet: No Restrictions Discharge Activity: Return to Normal Activity, May not drive while taking narcotic pain medications. May resume sexual activity in: 6 weeks Weight Bearing Status: Full weight bearing Lifting Restrictions: None Call your doctor if you observe: Fever of 101 or Higher, Inability to urinate, Inability to have a bowel movement, Using more than one pad per hour, Shortness of breath, Fainting spells, Increased palpitations (irregular heartbeat), Calf discomfort, Uncontrolled pain Allergies/Adverse Reactions: Allergies No Known Allergies Allergy (Verified 09/27/18 16:52) Medications to take at Discharge Vits [Prenatabs FA] 1 tablet PO DAILY 09/27/18 Ferrous Sulfate 325 mg PO DAILY 10/10/18 Labetalol [Trandate (Beta Mirna)] 200 mg PO BID 10/10/18 Primary Care Physician: Sury Husain [Primary Care Provider] - Test Results: Test results from this visit will be discussed in further detail at your follow- up appointment, if applicable. Please Follow Up With: Yumiko Cancino DO When: on Monday
--- NOTE | 2018-10-11 13:28 | NURSING ---
This RN called lab and notified that this RN was unable to edit the times for the fibrinogen, pt/inr and cbc that were all due at 1100. The new time is for 1345. Arely in lab states they will be up to draw at 1345 (this is two hours post-blood transfusion).
[2018-10-11 14:00] LABS: Hematocrit 26.9 % (37-47); Hemoglobin 8.5 g/dl (12.0-15.0); Mean Corp Hgb Conc 31.6 g/gl (32-36); Mean Corpuscular Hgb 29.1 pg (27.0-32.0); Mean Corpuscular Volume 92.1 fL (81-99); Mean Platelet Vol. 9.5 fl (6.2-12.0); Platelet Count 258 K/mm3 (150-450); RBC Distribution Width CV 12.5 % (11.6-14.6); RBC Distribution Width SD 40.3 fl (35.1-43.9); Red Blood Count 2.92 M/mm3 (4.2-5.4); White Blood Count 7.9 K/mm3 (4.4-11.0)
[2018-10-11 14:06] LABS: Scan Indicated on CBC? Y/N NO
[2018-10-11 14:08] LABS: International Normalized Ratio 1.2; Prothrombin Time (Protime)PT. 14.7 SECONDS (11.7-14.9)
[2018-10-11 14:17] LABS: Fibrinogen 213 mg/dl (203-444)
== END 2018-10-11 13:14 | disposition home or self-care (01) ==
LOC: MS3 10-11 06:15 → SDC 10-11 10:23 → MS3 10-11 10:23
PROVIDERS: Anesthesiology; Obstetrics & Gynecology; Admitting Provider Obstetrics & Gynecology; Family Provider Family Medicine; PCP Family Medicine; Referring Provider Obstetrics & Gynecology; Visit Provider Obstetrics & Gynecology
PROC: (CPT 59160; principal; 2018-10-10 16:55)
DX: O72.2 Delayed and secondary postpartum hemorrhage (principal); Z87.891 Personal history of nicotine dependence
CPT/HCPCS: 00940; 59160; 36415; 36430; 85027; 85384; 85610; 86850; 86900; 86920; 88305; 96361; 96365; 96366; 99218; J7120; P9016; G0378; G0379

== ENCOUNTER 2020-06-25 06:01 | Day surgery (SDC) | payer BC, SELFPAY ==
[2018-10-10 19:45] VITALS: BMI 49.3
--- NOTE | 2020-06-22 17:34 | PCM.HPOB.BLA ---
- Problem List (1) Uterine polyp Status: Acute History and Physical Date of Admission: 06/25/20 DATE OF SERVICE: June 15, 2020 ? PROBLEM:?female infertility, uterine polyp ? DIAGNOSIS:?as above ? PAST SURGICAL HISTORY:? PAST SURGICAL HISTORY PAST SURGICAL HISTORY Procedure Laterality Date ? DELIVERY ONLY ? 09/28/2018 ? [facility] ? ? ? IVF PACKAGE ? ? ? REMOVAL ADENOIDS,PRIMARY,<12 Y/O ? ? ? TOOTH EXTRACTION ? PAST MEDICAL HISTORY:? PAST MEDICAL HISTORY PAST MEDICAL HISTORY Diagnosis Date ? Chronic hypertension in 09/12/2018 ? 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 ? Infertility, female ? ? Tachycardia ? ? ? SUBJECTIVE:?Pt is doing well and has no complaints. LMP 06/14/2020.? ? SOCIAL HISTORY:? SOCIAL HISTORY Social History ? Tobacco Use ? Smoking status: Former Smoker ? ? Years: 6.00 ? ? Quit date: 2011 ? ? Years since quittin.0 ? Smokeless tobacco: Never Used Substance Use Topics ? Alcohol use: No ? Drug use: No ? ? Current Outpatient Medications on File Prior to Visit Medication Sig ? ibuprofen (MOTRIN) 800 mg tablet TAKE 1 TABLET BY MOUTH EVERY 8 HOURS NEEDED. DIRECTED FOR HEAVY MENSTRUAL BLEEDING ? progesterone 50 mg/mL injection Inject 1 mL intramuscularly once daily. Inject in the morning (Patient not taking: Reported on 06/15/2020 ) ? estradiol (ESTRACE) 2 mg tablet Take 2 tablet by mouth 2 times daily (Patient not taking: Reported on 06/15/2020 ) ? No current facility-administered medications on file prior to visit. ? ALLERGIES ALLERGIES No Known Allergies ? ? OBJECTIVE: ? VITALS:? BP 130/88 ? Pulse 80 ? Resp 18 ? Wt 298 lb (135.2 kg) ? LMP 06/14/2020 ? BMI 50.75 kg/m? ? HEENT: ?Normocephalic, atraumatic, Mucus membranes moist without lesions. ? NECK: ???Soft and Supple. ?No adenopathy , thyromegaly or bruits. ? SKIN: No lesions. ? CHEST: Clear to auscultation. ?No wheezes or rales. ?Good air exchange. ? HEART: Regular rate and rhythm ?No S3 or S4. ?No gallops or rubs. ? BACK: Nontender with no CVA tenderness. ? ABDOMEN: Soft, non-tender, non-distended, no masses, no hepatosplenomegaly. ? LOWER EXTREMITIES: There was no pitting edema, no palpable cords and no skin changes. ? ? ? ASSESSMENT:?female infertility, polyp noted on in office hysteroscopy, planning for embryo transfer with [facility] ? PLAN:?Discussed hysteroscopy polypectomy. Reviewed in office hysteroscopy was limited and there may not be a polyp present.?The rationale for the proposed surgery was discussed in addition to risks, benefits, and alternatives. ?General pre- and post-operative care was reviewed. ?Questions were answered. ?After discussion, the patient indicated a desire to proceed with the planned surgery. ? Yumiko Cancino,?DO
[2020-06-25 06:32] LABS: Internal QC Validated? YES +Cl - CLEAR BKGD; Pregnancy, Urine Negative Negative
[2020-06-25 06:37] VITALS: BP 152/81; PULSE 73; RESP 18; TEMP 36.6; O2SAT 100; BMI 48.2
--- NOTE | 2020-06-25 07:04 | DCINST_ITS ---
- Discharge Diagnoses Current Active Problems: Current Active and Chronic Problems (Last Updated 09/27/18 @ 17:[address] Jaswinder Nunez MD) Uterine polyp (Acute) You will use the following diet at home:: Regular Your food should be the consistency of: Regular Discharge Activity: May Drive - 24 hours or more after surgery, May Shower, May Take a Tub Bath - after 7 days. No intercourse, tampons, tub baths, or hot tubs for 7 days May resume sexual activity in: 1 week Weight Bearing Status: Full weight bearing Lifting Restrictions: No restrictions Call your doctor if you observe: Fever of 101 or Higher, Change in Color, Inability to urinate, Inability to have a bowel movement, Using more than one pad per hour, Shortness of breath, Dizziness, Fainting spells, Swelling in the ankles, Chest pain, Increased palpitations (irregular heartbeat), Calf discomfort, Uncontrolled pain Allergies/Adverse Reactions: Allergies No Known Allergies Allergy (Verified 06/25/20 06:35) Medications to take at Discharge Vits [Prenatabs FA] 1 tablet PO DAILY 09/27/18 Orders to be completed after discharge: Type & Screen - PAT ONLY Time Frame: 06/25/20, Facility: [facility], Location: Laboratory CBC-Complete Blood Cnt No Diff Time Frame: 06/25/20, Facility: [facility], Location: Laboratory Primary Care Physician: Sury Husain MD [Primary Care Provider] - Test Results: Test results from this visit will be discussed in further detail at your follow- up appointment, if applicable. Please Follow Up With: Yumiko Cancino DO When: 1 weeks
--- NOTE | 2020-06-25 07:05 | OP.PCM_ITS ---
Problem List (1) Uterine polyp Status: Acute (2) Female infertility Status: Acute Report of Operation Date of Procedure: 06/25/20 Pre-Operative Diagnosis: Uterine polyp, female infertility Post-Operative Diagnosis: Female infertility, no polyp noted Surgery/Procedure Performed:: Diagnostic hysteroscopy Description of Surgical Findings:: Indications: The patient was referred to our office for a hysteroscopy given infertility and plan for an embryo transfer. The in office hysteroscopy was limited given large uterine cavity, and a possible polyp was noted. Discussed options for a hysteroscopy with polypectomy in the OR with the patient including r/b/a, and she desired to proceed. Findings: Normal appearing uterine cavity and cervical canal. Bilateral tubal ostia were visualized. Type of Anesthesia:: MAC Special Medications: None Specimen's removed: None Drains: None Estimated Blood Loss (mL): < 50 cc Description of Procedure: Start time: 748 Stop time: 800 Fluid deficit: 200 cc The patient was prepped and draped in usual sterile fashion in dorsal lithotomy position using yellow fin stirrups. The uterus was noted to be enlarged and anteverted. A weighted speculum was placed to expose the cervix. The anterior lip of the cervix was grasped with a single tooth tenaculum. The cervix was serially dilated to accommodate the Symphion hysteroscope. The hysteroscope was advanced to the fundus of the uterus, and the cavity was distended with normal saline. Findings were noted as above. Pictures were taken for the patient to take to the infertility doctor. The hysteroscope was then removed. Bleeding was hemostatic. All instruments were removed from the vagina. Vaginal sweep was performed. Sponge and instrument were correct. Grafts/Implants Used: None - Complications None - Admit VTE Documentation VTE Present on Admission: No VTE Mechan Device Prophylaxis: [facility]'s VTE Pharm Prophylaxis ordered?: No
[2020-06-25] MEDS: Lactated Ringers 1,000 ML 100 ML IV (07:10)
[2020-06-25 07:26] LABS: Hematocrit 38.7 % (37-47); Hemoglobin 12.4 g/dL (12.0-15.0); Mean Corpuscular Hgb 28.8 pg (27.0-32.0); Mean Platelet Vol. 10.5 fl (6.2-12.0); Platelet Count 234 K/mm3 (150-450); RBC Distribution Width CV 11.7 % (11.6-14.6); RBC Distribution Width SD 38.2 fl (35.1-43.9); White Blood Count 6.4 K/mm3 (4.4-11.0)
[2020-06-25] MEDS: Lidocaine 1% (20 ml mdv) 20 ML Vial (07:49)
[2020-06-25] MEDS: Lubricating Jelly 60 GM Tube 30 GM TOPICAL (07:49)
[2020-06-25 08:07] VITALS: BP 134/74; BP 152/81; PULSE 65; RESP 16; TEMP 36.2; O2SAT 97
[2020-06-25 08:12] VITALS: BP 123/78; BP 152/81; PULSE 66; RESP 16; O2SAT 98
[2020-06-25 08:19] VITALS: BP 136/95; BP 152/81; PULSE 78; RESP 16; O2SAT 100
[2020-06-25 08:20] VITALS: BP 141/94; BP 152/81; PULSE 62; RESP 16; TEMP 36.5; O2SAT 99
[2020-06-25 08:47] VITALS: BP 143/83; BP 152/81; PULSE 63; RESP 18; TEMP 36.3; O2SAT 100
== END 2020-06-25 08:52 | disposition home or self-care (01) ==
LOC: SDC 06:05 → AC 06:07
PROVIDERS: PCP Family Medicine; Referring Provider Obstetrics & Gynecology; Visit Provider Obstetrics & Gynecology
PROC: 0UB98ZZ Excision of Uterus, Via Natural or Artificial Opening Endoscopic (ICD-10-PCS; CPT 58558; principal; 2020-06-25 07:15)
DX: N84.0 Polyp of corpus uteri (principal); N92.0 Excessive and frequent menstruation with regular cycle; N97.9 Female infertility, unspecified; Z87.891 Personal history of nicotine dependence
CPT/HCPCS: 00952; 58555; 36415; 81025; 85027; 86850; 86900; 86901; J7120; J2405

== ENCOUNTER → 2020-08-21 09:57 | Outpatient (CLI) | payer BC, SELFPAY ==
[2020-08-21 10:45] LABS: hCG Titer Quant., Serum 6855 mIU/mL (1-3)
== END ==
PROVIDERS: PCP Family Medicine
DX: Z32.01 Encounter for pregnancy test, result positive (principal)
CPT/HCPCS: 84702

== ENCOUNTER 2021-04-02 14:35 | Inpatient (IN) | payer BC, SELFPAY ==
[2021-04-02] VITALS (13 sets, daily range): BP systolic 127–162; BP diastolic 52–102; PULSE 77–95; RESP 16–20; TEMP 36.1–36.6; O2SAT 97–100; BMI 54.0
[2021-04-02] MEDS: Lactated Ringers 1,000 ML 999 ML IV (15:05)
[2021-04-02 15:27] LABS: Absolute Neutrophil Count 10.1 X10^3/uL (2.0-7.7); Basophil# 0.02 X10^3/uL; Basophil% 0.2 % (0-1); Eosinophil# 0.07 X10^3/uL; Eosinophils% 0.5 % (0-5); Hematocrit 38.9 % (37-47); Hemoglobin 12.8 g/dL (12.0-15.0); Lymphocyte % 15.8 % (19-41); Mean Corp Hgb Conc 32.9 g/dL (32-36); Mean Corpuscular Hgb 30.1 pg (27.0-32.0); Mean Corpuscular Volume 91.5 fL (81-99); Mean Platelet Vol. 10.9 fl (6.2-12.0); Monocyte# 0.92 X10^3/uL; Monocyte% 6.9 % (0-10); NRBC Flagged by Analyzer 0 % (0-5); Neutrophil # 10.05 X10^3/uL (2.7-7.7); Neutrophil % 75.8 % (47-70); Platelet Count 207 K/mm3 (150-450); RBC Distribution Width CV 13.4 % (11.6-14.6); RBC Distribution Width SD 45.3 fl (35.1-43.9); Red Blood Count 4.25 M/mm3 (4.2-5.4); White Blood Count 13.3 K/mm3 (4.4-11.0)
[2021-04-02] MEDS: Acetaminophen 500 MG Tablet 1000 MG PO ×2 (15:33→22:24)
[2021-04-02 15:35] LABS: AST(SGOT) 11 U/L (15-37); Alanine Aminotransfer ALT/SGPT 15 U/L (13-56); Creatinine, Serum 0.66 mg/dL (0.55-1.02); EST Glomerular Filtration Rate 111 mL/min (>60); Est Glom Filt Rate - Afr Amer 134 mL/min (>60); Estimated Creatinine Clearance 112.15 ml/min; Uric Acid 4.2 mg/dL (2.6-6.0)
[2021-04-02 15:52] LABS: Protein, Urine (Random) 45.7 mg/dL (<11.9); Protein:Creat Ratio 157 mg/g CRE (0-200)
[2021-04-02] MEDS: Lactated Ringers 1,000 ML 150 ML IV (16:03)
[2021-04-02] MEDS: Sodium Citrate/Citric Acid 30 ML UDC PO (19:49)
--- NOTE | 2021-04-02 21:30 | HP.PCM.OB_ITS ---
HPI - General General Date of Admission: 04/02/21 HPI Narrative RHIANNON WILKINS, is a 30 F at 37w6d who presents with elevated BP for a section. She came into the office for an OB visit and her BP was mild- severe range. No RODRIGUEZ, vision changes, upper abd pain. No ctx, vb, lof. She was sent to L&D for a repeat section for elevated blood pressure. Maternal Data Information AGUSTIN Calculator Estimated Delivery Date Method Current WG Current Estimate 04/17/21 LMP (Certain) 37w 6d PFSH PFSH Medical History (Updated 04/02/21 @ 21:[address] Rhiannon Cancino, DO) Gestational HTN History of blood transfusion Infertility Polyhydramnios hemorrhage Prolonged rupture of membranes, delivered Tachycardia Home Medications vit,[id number] [Prenatabs FA] 1 tab PO DAILY 09/27/18 [History Last Taken 04/02/21 07:30] aspirin [Aspir-81] 81 mg PO DAILY 04/02/21 [History Last Taken 04/02/21 07:30] cetirizine [Zyrtec] 10 mg PO DAILY 04/02/21 [History Last Taken 04/02/21 07:30] Allergy/AdvReac Type Severity Reaction Status Date / Time No Known Allergies Allergy Verified 04/02/21 14:44 Family History no significant family his Surgical History (Updated 04/02/21 @ 15:12 by Neeta Barr) History of gynecologic surgery History of oral surgery Previous section Social History Smoking Status: Former smoker History Elective abortions Hx Para 1 Spontaneous abortions Hx # Term Pregnancies Ectopic pregnancies Hx # Pregnancies Multiple births # of living children NST FHR Rate Baby A FHR Category:: Category I Vital Signs Vital Signs Vital Signs: 04/02/21 14:45 04/02/21 15:40 Temperature 97.0 F L Temperature Source Temporal Pulse Rate 90 Respiratory Rate 16 Blood Pressure [BP] 155/83 H 152/72 H Blood Pressure Mean [BP] 107 98 Blood Pressure Source [BP] Monitor Monitor Blood Pressure Position [BP] Semi-Fowlers Semi-Fowlers Blood Pressure Location [BP] Right Arm Right Arm Pulse Ox 99 Oxygen Delivery Method Room Air Weight Weight: 324 lb 11.854 oz Body Mass Index (BMI) 54.0 Labs Labs Labs: Blood Type O POSITIVE Antibody Screen NEGATIVE Hct 38.9 % (37-47) Hgb 12.8 g/dL (12.0-15.0) Rhogam given: No Assessment & Plan (1) 37 weeks gestation of : PLAN: No symptoms of pre-e. Pre-e labs WNL. BP severe and mild range in office. Possible h/o cHTN. cHTN vs gHTN in the setting of a h/o pre-eclampsia. Admitted for repeat section. Routine pre-op care. Discussed r/b/a to a repeat section and she desires to proceed. (2) Chronic hypertension affecting : (3) History of pre-eclampsia: (4) History of hemorrhage: (5) Obesity affecting :
[2021-04-02] MEDS: Oxytocin 30 units/NS 500 ml 30 UNITS/500 ML IV.SOLN 167 UNITS IV (21:35)
[2021-04-02] MEDS: 0.9% Saline Lock 10 ML Syringe IV (22:24)
[2021-04-02] MEDS: Ketorolac 30 MG/ML Syringe IV (22:24)
[2021-04-03] VITALS (11 sets, daily range): BP systolic 124–154; BP diastolic 63–90; PULSE 74–93; RESP 16–18; TEMP 36.1–36.7; O2SAT 96–99
[2021-04-03] MEDS: 0.9% Saline Lock 10 ML Syringe IV ×3 (00:47→17:04)
[2021-04-03] MEDS: HYDROmorphone 1 MG/ML Syringe IV (00:47)
[2021-04-03] MEDS: Lactated Ringers 1,000 ML 100 ML IV (00:59)
[2021-04-03] MEDS: Ketorolac 30 MG/ML Syringe IV ×3 (04:22→17:01)
[2021-04-03] MEDS: Acetaminophen 500 MG Tablet 1000 MG PO ×4 (04:22→23:29)
[2021-04-03 04:41] LABS: Hematocrit 33.2 % (37-47); Mean Corp Hgb Conc 33.1 g/dL (32-36); Mean Corpuscular Hgb 30.2 pg (27.0-32.0); Mean Corpuscular Volume 91.2 fL (81-99); Mean Platelet Vol. 10.8 fl (6.2-12.0); Platelet Count 180 K/mm3 (150-450); RBC Distribution Width CV 13.2 % (11.6-14.6); RBC Distribution Width SD 44.6 fl (35.1-43.9); Red Blood Count 3.64 M/mm3 (4.2-5.4); White Blood Count 14.1 K/mm3 (4.4-11.0)
[2021-04-03] MEDS: Labetalol 100 MG Tablet PO (09:53)
--- NOTE | 2021-04-03 09:56 | PCM.OPRPT ---
Problems Associated Problem List Diagnoses (1) Obesity affecting : (2) 37 weeks gestation of : (3) Chronic hypertension affecting : Report of Operation Date of Procedure: 04/02/21 Pre-Operative Diagnosis: 37 week gestation, obesity affecting , possible undiagnosed cHTN versus gHTN, worsening blood pressure in , history of prior section, history of pre eclampsia Post-Operative Diagnosis: As above Surgery/Procedure Performed:: Repeat low transverse section Description of Surgical Findings:: Moderate amount of adhesive disease. Fascia adhered to rectus muscles. Omentum adhered to peritoneum. Normal-appearing uterus and bilateral adnexa. Large amount of clear fluid. vertex presentation. Normal-appearing placenta. Apgars 8, 9. Surgeon: Yumiko Cancino activated sludge operator: Kelli Type of Anesthesia: Spinal Special Medications: None Specimen's removed: Placenta Drains: Castillo Estimated Blood Loss (mL): 1000 Fluids Replaced: See anesthesia record Description of Procedure: The patient was taken to the operating room where spinal anesthesia was adequate. She was prepped and draped in a dorsal position with a leftward tilt. A Pfannenstiel skin incision was made using a scalpel and this was carried down to the underlying layer fascia. The fascia was incised in the midline. The fascia was extended laterally using Byers scissors. The fascia was adhered to the rectus muscles. The fascia was dissected off the rectus muscles using a combination of sharp and blunt dissection. The rectus muscles were in the midline. The peritoneum was entered bluntly with good visualization of the bladder. The omentum was adhered to the peritoneum. The incision was extended bluntly. Minimal adhesions of the bladder to the anterior surface of the uterus. A bladder flap was created. An Rod O retractor was placed. A low transverse incision was made on the uterus with a scalpel. The patient was ruptured for a large amount of clear fluid. The was noted to be in vertex presentation and the head was flexed and brought to the hysterotomy. A viable female infant was delivered through the hysterotomy without any force or delay. The was delivered atraumatically. The cord was clamped and cut after a slight delay. The infant was handed off to the nursery staff. The placenta was removed with manual extraction and noted to be normal-appearing. Uterus was cleared of all clot and debris. The hysterotomy was closed in a running locked fashion using Vicryl. Hemostasis was noted. The adnexa were noted to be normal. The retractor was removed. The fascia was closed with PDS in a running fashion. Subcutaneous space was irrigated and made hemostatic with the Bovie cautery. Clinton was placed in subcutaneous space. The subcutaneous space was closed with Vicryl. The skin was closed in a subcuticular fashion. Steri-Strips and a dressing were placed. Instrument, needle, sponge counts were correct. The patient was taken to the recovery room in stable condition. Grafts/Implants Used: None Procedure Start Time: 20:30 Procedure Stop Time: 21:16 Complications None Admit VTE Documentation VTE Present on Admission: No VTE Mechan Device Prophylaxis: SCD's
--- NOTE | 2021-04-03 10:10 | PN.OBGYN_ITS ---
Subjective Subjective Pt doing well. No headaches, vision changes, upper abdominal pain. Pain well controlled. Ambulating voiding without difficulty. Tolerating regular diet without nausea or vomiting. Lochia normal. Objective Data Objective Data Vital Signs: Vital Signs Temp Pulse Resp BP Pulse Ox 97.8 F 93 16 142/90 H 97 04/03/21 08:35 04/03/21 08:35 04/03/21 08:35 04/03/21 08:35 04/03/21 08:35 Oxygen Delivery Method Room Air Weight: 324 lb 11.854 oz Body Mass Index (BMI) 54.0 Intake & Output: Intake and Output for Last 24 Hours 04/01/21 04/02/21 04/03/21 23:59 23:59 23:59 Intake Total 2066.55 / 2066.55 2133.33 / 2133.33 Output Total 150 / 150 350 / 350 Balance 1916.55 / 1916.55 1783.33 / 1783.33 Lab / Micro Data Result Diagrams: 04/03/21 04:30 04/02/21 15:00 Labs: Laboratory Results - last 24 hr 04/02/21 15:00: WBC 13.3 H, RBC 4.25, Hgb 12.8, Hct 38.9, MCV 91.5, MCH 30.1, MCHC 32.9, RDW Std Deviation 45.3 H, RDW Coeff of Heide 13.4, Plt Count 207, MPV 10.9, Immature Gran % (Auto) 0.800, Neut % (Auto) 75.8 H, Lymph % (Auto) 15.8 L, [place] % (Auto) 6.9, Eos % (Auto) 0.5, Baso % (Auto) 0.2, Absolute Neuts (auto) 10.1 H, Absolute Lymphs (auto) 2.10, Nucleated RBC % 0 04/02/21 15:00: Blood Type O POSITIVE, Antibody Screen NEGATIVE 04/02/21 15:00: U Random Total Protein 45.7 H, Urine Creatinine 292.00, Protein/Creatinin Ratio 157 04/02/21 15:00: Creatinine 0.66, Estim Creat Clear Calc 112.15, Est GFR (MDRD) Af Amer 134, Est GFR (MDRD) Non-Af 111, Uric Acid 4.2, AST 11 L, ALT 15 04/03/21 04:30: WBC 14.1 H, RBC 3.64 L, Hgb 11.0 L, Hct 33.2 L, MCV 91.2, MCH 30.2, MCHC 33.1, RDW Std Deviation 44.6 H, RDW Coeff of Heide 13.2, Plt Count 180, MPV 10.8 Micro: Microbiology 04/02/21 15:25 Nasal Secretion SARS-CoV-2 Antigen (Rapid) - Final Physical Exam Const alert General Appearance: comfortable HEENT normocephalic Resp normal respiratory effort GI soft to palpation and non-distended GI Narrative: ATTP, dressing c/d/i, obese Extremity no calf tenderness Assessment & Plan (1) Obesity affecting : (2) History of hemorrhage: (3) History of pre-eclampsia: (4) Chronic hypertension affecting : (5) Delivery by section: PLAN: - POD#1 s/p RLTCS. No pre e symptoms. BP trending up so will start Labetalol 100 mg BID. Plt's trending down but still WNL. Will check pre e labs again in AM. Doing well post op. Dispo: Cont routine post op care.
[2021-04-03] MEDS: Senna/Docusate Sodium 1 Tablet PO (10:44)
[2021-04-03] MEDS: Enoxaparin 40 MG/0.4 ML Syringe SC ×2 (10:45→21:30)
[2021-04-03] MEDS: Labetalol 200 MG Tablet PO (21:29)
[2021-04-03] MEDS: Ibuprofen 600 MG Tablet PO (23:29)
[2021-04-04 01:45] VITALS: BP 143/74; PULSE 84; RESP 16; TEMP 35.7; O2SAT 97
[2021-04-04 05:17] VITALS: BP 181/86
[2021-04-04] MEDS: Acetaminophen 500 MG Tablet 1000 MG PO ×2 (05:19→11:36)
[2021-04-04] MEDS: Ibuprofen 600 MG Tablet PO ×2 (05:19→11:36)
[2021-04-04 05:27] LABS: Hematocrit 31.3 % (37-47); Hemoglobin 10.4 g/dL (12.0-15.0); Mean Corp Hgb Conc 33.2 g/dL (32-36); Mean Corpuscular Hgb 30.4 pg (27.0-32.0); Mean Corpuscular Volume 91.5 fL (81-99); Mean Platelet Vol. 10.5 fl (6.2-12.0); Platelet Count 163 K/mm3 (150-450); RBC Distribution Width CV 13.5 % (11.6-14.6); RBC Distribution Width SD 44.7 fl (35.1-43.9); Red Blood Count 3.42 M/mm3 (4.2-5.4); White Blood Count 9.4 K/mm3 (4.4-11.0)
[2021-04-04 05:33] VITALS: BP 131/64
[2021-04-04 06:04] LABS: ALB/GLOB Ratio 0.6 RATIO (0.9-2.4); AST(SGOT) 12 U/L (15-37); Alanine Aminotransfer ALT/SGPT 13 U/L (13-56); Albumin, Serum 2.1 g/dL (3.2-5.0); Alkaline Phosphatase 71 U/L (45-117); Anion Gap 8 (5-15); BUN 14 mg/dL (7-18); BUN/Creat Ratio 20.7 RATIO (10-20); Calcium,Total 8.7 mg/dL (8.5-10.1); Chloride 106 mmol/L (98-107); Creatinine, Serum 0.68 mg/dL (0.55-1.02); EST Glomerular Filtration Rate 108 mL/min (>60); Est Glom Filt Rate - Afr Amer 131 mL/min (>60); Estimated Creatinine Clearance 108.85 ml/min; Globulin 3.7 g/dL (2.2-4.2); Glucose 107 mg/dL (74-106); Potassium 4.2 mmol/L (3.5-5.1); Protein, Total 5.8 g/dL (6.4-8.2); Sodium Level 138 mmol/L (136-145)
--- NOTE | 2021-04-04 06:59 | PN.OBGYN_ITS ---
Subjective Subjective Patient seen at bedside. Feeling good. Ambulating and voiding without difficulty. Passing flatus and had BM. Denies any headache, vision changes, RUQ, SOB or CP. Pumping and feeding with bottle. Desires discharge home today. Objective Data Objective Data Vital Signs: Vital Signs Temp Pulse Resp BP Pulse Ox 97.6 F L 80 16 148/84 H 97 04/04/21 08:35 04/04/21 08:35 04/04/21 08:35 04/04/21 08:35 04/04/21 08:35 Oxygen Delivery Method Room Air Weight: 324 lb 11.854 oz Body Mass Index (BMI) 54.0 Intake & Output: Intake and Output for Last 24 Hours 04/02/21 04/03/21 04/04/21 23:59 23:59 23:59 Intake Total 2066.55 / 2066.55 2133.33 / 2133.33 Output Total 150 / 150 600 / 600 Balance 1916.55 / 1916.55 1533.33 / 1533.33 Lab / Micro Data Result Diagrams: 04/04/21 05:15 04/04/21 05:15 Labs: Laboratory Results - last 24 hr 04/04/21 05:15: WBC 9.4, RBC 3.42 L, Hgb 10.4 L, Hct 31.3 L, MCV 91.5, MCH 30.4, MCHC 33.2, RDW Std Deviation 44.7 H, RDW Coeff of Heide 13.5, Plt Count 163, MPV 10.5 04/04/21 05:15: Sodium 138, Potassium 4.2, Chloride 106, Carbon Dioxide 24.0, Anion Gap 8, BUN 14, Creatinine 0.68, Estim Creat Clear Calc 108.85, Est GFR (MDRD) Af Amer 131, Est GFR (MDRD) Non-Af 108, BUN/Creatinine Ratio 20.7 H, Glucose 107 H, Calcium 8.7, Total Bilirubin 0.20, AST 12 L, ALT 13, Alkaline Phosphatase 71, Total Protein 5.8 L, Albumin 2.1 L, Globulin 3.7, Albumin/Globulin Ratio 0.6 L Micro: Microbiology 04/02/21 15:25 Nasal Secretion SARS-CoV-2 Antigen (Rapid) - Final ROS Eyes Eyes: Denies blurry vision, change in vision or spots in vision ENT HEENT: Denies dizziness or headache(s) Cardiovascular Cardiovascular: Denies abdominal pain, chest pain or dyspnea Respiratory/Chest Respiratory/Chest: Denies cough, dyspnea, shortness of breath at rest or shortn ess of breath with exertion Gastrointestinal Gastrointestinal: Denies abdominal pain, diarrhea or vomiting Genitourinary Genitourinary: Denies change in urinary stream, difficulty urinating or dysuria Musculoskeletal Musculoskeletal: Reports none Integumentary Integumentary: Denies rash Neurologic Neurologic: Denies dizziness, headache(s), memory loss or weakness Physical Exam Narrative Dressing is dry and intact Const alert and no apparent distress General Appearance: cooperative and comfortable Exam Limitations: no limitations HEENT normocephalic Eyes General Eye: normal appearance of both eyes Neck full ROM General: normal visual inspection Chest Chest: symmetrical chest wall rise Resp normal respiratory effort and normal air movement Effort and Inspection: symmetric chest movement Auscultation: clear to auscultation bilaterally Cardio regular rate and regular rhythm GI normal to inspection, nondistended, normoactive bowel sounds Back/Spine normal ROM Extremity full ROM and no calf tenderness General Extremity: normal exam except as noted Skin no rashes or lesions noted Neuro CN's II-XII intact bilaterally Psych mental status grossly normal Assessment & Plan (1) Chronic hypertension affecting : (2) Delivery by section: PLAN: PO #2 Repeat C/S Pain control BP monitoring PIH labs - normal
[2021-04-04 08:35] VITALS: BP 148/84; PULSE 80; RESP 16; TEMP 36.4; O2SAT 97
--- NOTE | 2021-04-04 08:49 | PCM.DC.SUM ---
Providers Date of Admission: 04/02/21 Primary Care Physician: Dr. Sury Husain MD Reason For Visit: REPEAT C SECTION Diagnosis Discharge Diagnosis (1) Chronic hypertension affecting : Status: Chronic Code(s): O10.919 - Unspecified pre-existing hypertension complicating , unspecified trimester (2) Delivery by section: Status: Acute Medications at Discharge Home Medications Prenatabs FA 1 tab PO DAILY 09/27/18 labetalol 200 mg PO BID #60 tab 04/04/21 Hospital Course Operations section Summary of Care Provided Hospital Course: Patient had repeat section and hospital course was uneventful. Physical Exam Narrative Dressing dry and intact Const alert and no apparent distress General Appearance: cooperative and comfortable Exam Limitations: no limitations HEENT normocephalic Eyes General Eye: normal appearance of both eyes Neck full ROM General: normal visual inspection Chest Chest: symmetrical chest wall rise Resp normal respiratory effort and normal air movement Effort and Inspection: symmetric chest movement Auscultation: clear to auscultation bilaterally Cardio regular rate and regular rhythm GI normal to inspection, nondistended, normoactive bowel sounds Back/Spine normal ROM Extremity full ROM and no calf tenderness General Extremity: normal exam except as noted Skin no rashes or lesions noted Neuro CN's II-XII intact bilaterally Psych mental status grossly normal Weight / BMI Weight Weight: 324 lb 11.854 oz Body Mass Index (BMI) 54.0 ABG / Lab / Microbiology Data Result Diagrams: 04/04/21 05:15 04/04/21 05:15 Laboratory: Laboratory Results - last 24 hr 04/04/21 05:15: WBC 9.4, RBC 3.42 L, Hgb 10.4 L, Hct 31.3 L, MCV 91.5, MCH 30.4, MCHC 33.2, RDW Std Deviation 44.7 H, RDW Coeff of Heide 13.5, Plt Count 163, MPV 10.5 04/04/21 05:15: Sodium 138, Potassium 4.2, Chloride 106, Carbon Dioxide 24.0, Anion Gap 8, BUN 14, Creatinine 0.68, Estim Creat Clear Calc 108.85, Est GFR (MDRD) Af Amer 131, Est GFR (MDRD) Non-Af 108, BUN/Creatinine Ratio 20.7 H, Glucose 107 H, Calcium 8.7, Total Bilirubin 0.20, AST 12 L, ALT 13, Alkaline Phosphatase 71, Total Protein 5.8 L, Albumin 2.1 L, Globulin 3.7, Albumin/Globulin Ratio 0.6 L Microbiology: Microbiology 04/02/21 15:25 Nasal Secretion SARS-CoV-2 Antigen (Rapid) - Final D/C Instructions Discharge Diet: No restrictions May resume sexual activity in: 6-8 weeks Weight Bearing Status: Weight bearing as tolerated Lifting Restrictions: 20 lbs Call your doctor if your incision/area has: Continuous Slow Oozing, Increased Pain/ Swelling, Increased Redness, Foul Smelling Discharge and Swelling at the incision site Call your doctor if you observe: Fever of 101 or Higher, Inability to urinate, Using more than 1 pad per hour, Shortness of breath, Chest pain, Calf discomfort and Uncontrolled pain Remove Dressing in: 5 days Cleanse incision/area with: Soap & Water and Keep Dressing Clean & Dry When: 1 week in office for incision check or sooner if needed 6 weeks Meaningful Use Info Meaningful Use Diagnoses (Choose all that apply): None applicable Discharge Plan Admission Admit Date/Time: 04/02/21 14:35 Primary Reason for Your Visit: Repeat c/s Attending Provider: Yumiko Cancino Primary Care Provider: Sury Husain Instructions Additional Instructions / Restrictions: Follow up in office this week for BP and incision check Discharge Orders/Prescriptions Prescriptions: New labetalol 200 mg Tablet 200 mg PO BID Qty: 60 RF: 1 Continued Prenatabs FA 1 TABLET tablet 1 tab PO DAILY RF: 0 Discontinued cetirizine [Zyrtec] 10 mg Tablet 10 mg PO DAILY RF: 0 aspirin [Aspir-81] 81 mg Tablet,Delayed Release (Dr/Ec) 81 mg PO DAILY RF: 0 Referrals / Follow Up: Sury Husain MD [Primary Care Provider] - Disposition Disposition (needs filled in before D/C Order can be placed): Home, Self Care
[2021-04-04] MEDS: Enoxaparin 40 MG/0.4 ML Syringe SC (09:17)
[2021-04-04] MEDS: Labetalol 200 MG Tablet PO (09:17)
[2021-04-04] MEDS: Senna/Docusate Sodium 1 Tablet PO (09:17)
[2021-04-04 11:38] VITALS: BP 150/82; PULSE 78
--- NOTE | 2021-04-04 12:26 | NURSING ---
This RN called Jeremy Church to confirm pt able to be discharged. Updated on BP. Per Jeremy Church okay to d/c with f/u in office.
[2021-04-04 12:36] VITALS: BP 141/82; PULSE 78
--- NOTE | 2021-04-04 13:01 | NURSING ---
Dr. Cancino called in for update on pt. Gave information in regards to time of labetalol administration, Vital signs, and morning labs. RN was instructed that it was okay for patient to be discharged. However, pt needs to take BP before taking labetelol and 2 hours after until instructed to stop. And to send Dr. Cancino a [employer]t message in the morning 04/05 of her blood pressures from [facility] and tomorrow morning. To follow up with Dr. Cancino this week. And was given information and teaching on developing pre-eclampsia post-.
== END 2021-04-04 13:45 | disposition home or self-care (01) | DRG 788 ==
PROVIDERS: Admitting Provider Obstetrics & Gynecology; PCP Family Medicine; Visit Provider Obstetrics & Gynecology
PROC: 10D00Z1 Extraction of Products of Conception, Low, Open Approach (ICD-10-PCS; CPT 59514; principal; 2021-04-02 17:00)
DX: O16.4 Unspecified maternal hypertension, complicating childbirth (principal); O99.214 Obesity complicating childbirth; E66.9 Obesity, unspecified; Z3A.37 37 weeks gestation of pregnancy; Z37.0 Single live birth
CPT/HCPCS: 80053; 82565; 82570; 84156; 84450; 84460; 84550; 85025; 85027; 86850; 86900; 86901; 87426; 99218; 99251; J7120; A4216; G0378; G0463; J2405